=== PATIENT | male | born 1975 | race Caucasian/White ===

== ENCOUNTER 2020-10-21 16:45 | Emergency (ER) | payer OTHER, SELFPAY ==
[~2020-10-21] VITALS: Ht 170.2 cm; Wt 81.6 kg
[2020-10-21 16:47] VITALS: Ht 170.2 cm; Wt 81.6 kg
[2020-10-21 17:58] VITALS: BP 137/92
== END 2020-10-21 17:58 | disposition home or self-care (01) ==
LOC: ED 16:45
DX: R05 Cough (principal); M79.10 Myalgia, unspecified site; R51.9 Headache, unspecified; I10 Essential (primary) hypertension; Z20.828 Contact with and (suspected) exposure to other viral communicable diseases
CPT/HCPCS: U0003